=== PATIENT | female | born 1940 | race American Indian/Alaskan Native ===

== ENCOUNTER 2016-10-20 09:53 | Outpatient (CLI) | payer MEDICARE ==
[2016-10-20 12:31] LABS: Blood Urea Nitrogen 11 mg/dL (7-17)
== END 2016-10-20 09:54 | disposition home or self-care (01) ==
LOC: CT 09:53
PROVIDERS: ATTEND Internal Medicine Hematology & Oncology
DX: C50.412 Malignant neoplasm of upper-outer quadrant of left female breast (principal); C50.411 Malignant neoplasm of upper-outer quadrant of right female breast; E11.00 Type 2 diabetes mellitus with hyperosmolarity without nonketotic hyperglycemic-hyperosmolar coma (NKHHC)
CPT/HCPCS: 36415; 82565; 84520

== ENCOUNTER 2016-10-24 12:23 | Outpatient (CLI) | payer MEDICARE ==
[2016-10-24] MEDS ORDERED: NACL ONE (13:22)
--- NOTE | 2016-10-24 14:09 | Cat Scan Report ---
CT of the chest with IV contrast. Findings: There multiple small hypodensities throughout the thyroid which appears moderately enlarged. The mediastinum and hilar regions are normal. There is marked elevation of the right hemidiaphragm. The lungs are clear. No pulmonary nodules are identified. No suspicious bony findings are seen. Impression: No evidence of metastatic disease. 2. Multinodular goiter. 3. Elevation of the right hemidiaphragm.
== END 2016-10-24 12:24 | disposition home or self-care (01) ==
LOC: CT 12:23
PROVIDERS: ATTEND Internal Medicine Hematology & Oncology
DX: C50.411 Malignant neoplasm of upper-outer quadrant of right female breast (principal); E11.00 Type 2 diabetes mellitus with hyperosmolarity without nonketotic hyperglycemic-hyperosmolar coma (NKHHC); E04.2 Nontoxic multinodular goiter; Q79.1 Other congenital malformations of diaphragm
CPT/HCPCS: 71260